=== PATIENT | female | born 1975 | race Caucasian/White ===

== ENCOUNTER 2018-12-16 10:41 | Outpatient (REF) | payer BC, SELFPAY ==
--- NOTE | 2018-12-16 08:30 | PAPFT_PTH ---
PATIENT: Elaina Hutchins LOC: [facility] U#:[id number] AGE/SX: 43/F ROOM: RE12/16/[address]: Akanksha Hinson : 1975 BED: DIS: 12/16/2018 SPEC #: [id number] RECD: 12/16/18 12:44 STATUS: SANJU REBreanna #: [id number] ALISHA: 12/16/18 08:[address]: Akanksha Hinson DEPT: [facility] Cytology RECD BY: Meagan Gunn Tissues: 1 - CX/ENDOCX FOR PAP SMEARS Procedures: PAP THIN PREP/UVM Screening HPV DNA PROBE Comments: [id number]
== END 2018-12-16 11:01 ==
LOC: NCHCN 10:41
PROVIDERS: PCP Family Medicine; Visit Provider Family Medicine
DX: Z00.00 Encounter for general adult medical examination without abnormal findings (principal); Z12.4 Encounter for screening for malignant neoplasm of cervix; Z11.51 Encounter for screening for human papillomavirus (HPV)
CPT/HCPCS: 88142; 87624

== ENCOUNTER 2018-12-23 01:44 | Outpatient (CLI) | payer BC, SELFPAY ==
--- NOTE | 2018-12-23 09:45 | DI.MAMMO_ITS ---
SYMPTOM/DIAGNOSIS: SCREENING, Z12.39, BASELINE MAMMOGRAMS: Mammograms were interpreted according to the usual protocol including computer analysis with CAD system, tomosynthesis and C view imaging. No prior studies for comparison. Breast density, category D. No suspicious masses or microcalcifications are seen. There is no definite evidence of malignancy. IMPRESSION: Negative mammogram. Routine screening is recommended. Category 1. MQSA ASSESSMENT OF FINDINGS: Negative. Category 1. Patient will receive a letter notifying them of these results. BI-RADS category D. The breasts are extremely dense, which lowers the sensitivity of mammography.
== END 2018-12-23 02:04 ==
PROVIDERS: PCP Family Medicine; Visit Provider Family Medicine
DX: Z12.31 Encounter for screening mammogram for malignant neoplasm of breast (principal)
CPT/HCPCS: 77063; 77067

== ENCOUNTER 2019-12-18 08:37 | Outpatient (REF) | payer BC, SELFPAY ==
[2019-12-18 19:01] LABS: Calculated LDL 151 mg/dL (<100); Cholesterol 235 mg/dL (<200); HDL Cholesterol 76 mg/dL (40-60); TSH (W/Ref FT4) 1.22 uIU/mL (0.36-3.74); Triglyceride 44 mg/dL (<150)
== END 2019-12-18 08:57 ==
LOC: NCHCN 08:37
PROVIDERS: PCP Family Medicine; Visit Provider Family Medicine
DX: R63.4 Abnormal weight loss (principal); R25.1 Tremor, unspecified; Z00.00 Encounter for general adult medical examination without abnormal findings
CPT/HCPCS: 80061; 84443

== ENCOUNTER 2020-01-02 13:01 | Outpatient (CLI) | payer BC, SELFPAY ==
[2020-01-07 08:43] LABS: COVID-19 RT-PCR Result Not Detected (NotDetected)
== END 2020-01-02 13:21 ==
PROVIDERS: PCP Family Medicine; Visit Provider Family Medicine
DX: Z20.828 Contact with and (suspected) exposure to other viral communicable diseases (principal); Z11.59 Encounter for screening for other viral diseases; R50.9 Fever, unspecified
CPT/HCPCS: 87449; U0003

== ENCOUNTER 2020-03-16 02:32 | Outpatient (CLI) | payer BC, SELFPAY ==
--- NOTE | 2020-03-16 | DI.MAMMO_ITS ---
EXAM: MAMMO SCREENING CLINICAL HISTORY: SCREENING, Z12.39 TECHNIQUE: Mammograms were interpreted according to the usual protocol including computer analysis w [employer] CAD system, tomosynthesis and C-view imaging. COMPARISON: FINDINGS: The breasts are of a very high density. No dominant mass or clumped microcalcification is identified breast. Current examination is compared with previous examination December 2018 and there has been no gross interval change appearance comparison with the previous study. IMPRESSION: No specific evidence of malignancy at this time. Routine screening examinations are suggested at ye mario intervals due to the family history of breast carcinoma. BI-RADS Cat 1 - Negative: Breast Density - Category D - Extremely dense:
== END 2020-03-16 02:52 ==
PROVIDERS: PCP Family Medicine; Visit Provider Family Medicine
DX: Z12.31 Encounter for screening mammogram for malignant neoplasm of breast (principal); Z80.3 Family history of malignant neoplasm of breast
CPT/HCPCS: 77063; 77067

== ENCOUNTER 2021-03-17 01:25 | Outpatient (CLI) | payer BC, SELFPAY ==
--- NOTE | 2021-03-17 07:40 | DI.MAMMO_ITS ---
Exam(s) MAMMO SCREENING EXAM: MAMMO SCREENING CLINICAL HISTORY: SCREENING, Z12.39 TECHNIQUE: Bilateral full field digital CC and MLO mammographic images were obtained with 3D tomosyn thesis and utilizing computer aided detection (CAD). COMPARISON: Available for comparison. FINDINGS: Masses/Architectural Distortion: There is a new partially obscured nodule in the upper left breast se en on the MLO view. Microcalcifications: No suspicious pleomorphic-type are seen. Skin Thickening/Nipple Retraction: None. IMPRESSION: 1. 4 mm nodule in the upper left breast on the MLO view. 2. Spot compression view and left breast ultrasound are recommended for further evaluation. BI-RADS Category 0 - Assessment Incomplete: Need additional imaging evaluation Breast Density - Category D - Extremely dense Breast density category C or D implies that the patient has dense breast tissue. Dense breast tissue is very common and is not abnormal but dense breast tissue can make it harder to find cancer on a ma mmogram. Also, dense breast tissue may increase their breast cancer risk. This information about the result of the mammogram report was provided to the patient to raise their awareness. Use this report when you speak with the patient about their risks for breast cancer, which includes their family hist ory. At that time, you may recommend for more screening tests (Ultrasound or MRI) as they might be us eful based on their risk. A negative radiographic report should not delay biopsy if a dominant or clinically suspicious mass is present. Up to ten percent of cancers are not identified on mammography. A negative report may reinforce clinical impression. Adenosis and dense breasts may obscure an underlying neoplasm. False positive reports average 6 to 10%. Patient will receive a letter notifying them of these results.
== END 2021-03-17 01:45 ==
PROVIDERS: PCP Family Medicine; Visit Provider Family Medicine
DX: Z12.31 Encounter for screening mammogram for malignant neoplasm of breast (principal); R92.8 Other abnormal and inconclusive findings on diagnostic imaging of breast
CPT/HCPCS: 77063; 77067

== ENCOUNTER 2021-03-30 00:50 | Outpatient (CLI) | payer BC, SELFPAY ==
--- NOTE | 2021-03-30 | DI.US_ITS ---
Exam(s) US BREAST LT COMPLETE EXAM: US BREAST LT COMPLETE CLINICAL HISTORY: F/U MAMMO, LT BREAST NODULE. TECHNIQUE: Complete ultrasound of the left breast was performed incluing all 4 quadrants, the retroa reolar region, and the ipsilateral axilla. COMPARISON: Prior mammograms were reviewed. Today's diagnostic left breast mammogram was also review ed. FINDINGS: LEFT BREAST ULTRASOUND: At the 12 o'clock position there is a 6 x 3 millimeter microcyst. At the 1 o'clock position there is a conglomeration of microcysts measuring 5 x 4 millimeters. This may correspond to what is seen on the mammogram. At the 2 o'clock position there is a 4 x 3 millimeter microcysts. This may also correspond to what w as seen on the mammogram. At the 3 o'clock position there is a conglomeration of microcysts with total measurement of 1.6 x 0.4 cm. This has benign appearance. At the 7 o'clock position there are 2 adjacent microcysts, both measuring approximately 3 millimeters . At the deep 10 o'clock position there is a well-defined slightly lobulated wider than taller nodular density measuring approximately 1.2 x 0.3 cm and exhibiting neutral through transmission. Is difficu lt to determine if this is either island of glandular tissue within dense surrounding tissue or this is a possible fibroadenoma. No other focal findings in all 4 quadrants nor in the immediate retroareolar region. There is no significant adenopathy in the ipsilateral-left axilla. IMPRESSION: There are multiple findings on ultrasound as described individually above which are hidden subjacent to her dense fibroglandular tissue on mammography. Most of the above findings are simple microcysts and conglomeration of microcysts and does at the 1 a nd 2 o'clock positions probably correspond to the finding described on the mammogram. At the 10 o'clock position there is a deep finding as described above measuring 12 x 3 millimeters wh ich is either fibroadenoma or possibly just asymmetric island of glandular tissue. Appropriate follow-up is repeat breast ULTRASOUND in 3 months time. At that time she should undergo bilateral complete breast ultrasound, particularly given the density of her fibroglandular tissue on mammography as well as the numerous findings in the left breast seen on today's ultrasound.. Findings and recommendations were discussed by myself with the patient today. BI-RADS Category 3 - 3 month - Probably Benign Finding: Recommend follow-up ULTRASOUND in 3 months Breast Density - Category D - Extremely dense Breast density Category C or D implies that the patient has dense breast tissue. Dense breast tissue can make it harder to find cancer on a mammogram. Dense breast tissue is also associated with an incr eased risk of breast cancer. This information about the result of the mammogram report was provided to the patient to raise their awareness. Use this report when you speak with the patient about their risks for breast cancer, which includes their family history. At that time, you may recommend additional screening tests (Ultrasoun d or MRI) as these tests may add significant information. A negative radiographic report should not delay biopsy if a dominant or clinically suspicious mass is present. Up to ten percent of cancers are not identified on mammography. A negative report may reinforce clinical impression. Adenosis and dense breasts may obscure an underlying neoplasm. False positive reports average 6 to 10%. Patient will receive a letter notifying them of these results.
--- NOTE | 2021-03-30 | DI.MAMMO_ITS ---
Exam(s) MG MAMMO SCREEN CALL BACK UNI EXAM: MG MAMMO SCREEN CALL BACK UNI-LEFT CLINICAL HISTORY: F/U MAMMO, NODULE UPPER LT BREAST. TECHNIQUE: Unilateral spot mammographic images were obtained with 3D tomosynthesis and utilizing com puter aided detection (CAD). . Left breast Ultrasound was also performed. COMPARISON: Prior mammograms were reviewed. This additional imaging was performed due to findings described on the recent screening mammogram of . FINDINGS: Additional mammographic views performed todayreveal the nodule to persist.Therefore proceeded with [facility] ultrasound Ultrasound performed today reveals numerous findings. Please see that separate report.. Patient yuliya l require follow-up ultrasound in 3 months. IMPRESSION: See ultrasound report Appropriate follow-up is repeat left breast ultrasound in 3 months. Given the density of this patien t's fibroglandular tissue and numerous ultrasound findings in the left breast I recommend that at her follow-up appointment in 3 months that she undergo bilateral breast ultrasound.. The patient was informed of these findings and recommendations prior to leaving the department today. BI-RADS Category 3 - 3 month - Probably Benign Finding: Recommend follow-up mammography in 3 months Breast Density - Category D - Extremely dense Breast density Category C or D implies that the patient has dense breast tissue. Dense breast tissue can make it harder to find cancer on a mammogram. Dense breast tissue is also associated with an incr eased risk of breast cancer. This information about the result of the mammogram report was provided to the patient to raise their awareness. Use this report when you speak with the patient about their risks for breast cancer, which includes their family history. At that time, you may recommend additional screening tests (Ultrasoun d or MRI) as these tests may add significant information. A negative radiographic report should not delay biopsy if a dominant or clinically suspicious mass is present. Up to ten percent of cancers are not identified on mammography. A negative report may reinforce clinical impression. Adenosis and dense breasts may obscure an underlying neoplasm. False positive reports average 6 to 10%. Patient will receive a letter notifying them of these results.
== END 2021-03-30 01:10 ==
PROVIDERS: PCP Family Medicine; Visit Provider Family Medicine
DX: Z12.31 Encounter for screening mammogram for malignant neoplasm of breast (principal); N63.20 Unspecified lump in the left breast, unspecified quadrant; N60.02 Solitary cyst of left breast
CPT/HCPCS: 76642; 77063; 77067

== ENCOUNTER 2021-12-16 18:30 | Outpatient (CLI) | payer OTHER, SELFPAY ==
--- NOTE | 2021-12-16 | DI.RAD_ITS ---
Exam(s) XR SHOULDER LT COMPLETE 2+V EXAM: XR SHOULDER LT COMPLETE 2+V CLINICAL HISTORY: PAIN IN LT SHOULDER, M25.512 TECHNIQUE: COMPARISON: No exams were available for comparison FINDINGS: Four views were obtained. No bony or soft tissue abnormality seen. IMPRESSION: RADIATION DOSE DELIVERED: Total DLP
--- NOTE | 2021-12-16 17:49 | DI.VRAD_ITS ---
PROCEDURE INFORMATION: Exam: XR Left Shoulder Exam date and time: 12/16/2021 4:28 PM Age: 46 years old Clinical indication: Left; Patient HX: L shoulder pain TECHNIQUE: Imaging protocol: XR Left shoulder. Views: 2 or more views. COMPARISON: No relevant images were readily available for comparison purposes. FINDINGS: Bones/joints: No acute fracture or dislocation. Soft tissues: Unremarkable. IMPRESSION: No acute fracture of dislocation. Dictated and Authenticated by: Antony Bernard MD. Ordering:SUNITA Crouch MD
== END 2021-12-16 18:50 ==
LOC: DI 18:34
PROVIDERS: PCP Family Medicine; Visit Provider Physician Assistant Medical
DX: M25.512 Pain in left shoulder (principal)
CPT/HCPCS: 73030

== ENCOUNTER 2022-02-03 10:51 | Outpatient (REF) | payer OTHER, SELFPAY ==
--- NOTE | 2022-02-03 08:15 | PAPFT_PTH ---
PATIENT: Elaina Hutchins LOC: [facility] U#:[id number] AGE/SX: 47/F ROOM: RE02/03/[address]: Akanksha Hinson : 1975 BED: DIS: 02/03/2022 SPEC #: [id number] RECD: 02/03/22 13:25 STATUS: SANJU REBreanna #: [id number] ALISHA: 02/03/22 08:[address]: Akanksha Hinson DEPT: [facility] Cytology RECD BY: Meagan Gunn Tissues: 1 - CX/ENDOCX FOR PAP SMEARS Procedures: PAP THIN PREP/UVM Screening HPV DNA PROBE Comments: [id number]
== END 2022-02-03 10:52 | disposition home or self-care (01) ==
LOC: LBN 10:51
PROVIDERS: PCP Family Medicine; Visit Provider Family Medicine
DX: Z12.4 Encounter for screening for malignant neoplasm of cervix (principal); Z11.51 Encounter for screening for human papillomavirus (HPV); Z87.42 Personal history of other diseases of the female genital tract; Z01.419 Encounter for gynecological examination (general) (routine) without abnormal findings
CPT/HCPCS: 88142; 87624

== ENCOUNTER → 2022-03-20 02:17 | Outpatient (CLI) | payer OTHER, SELFPAY ==
--- NOTE | 2022-03-20 07:45 | DI.MAMMO_ITS ---
Exam(s) MAMMO SCREENING EXAM: MAMMO SCREENING CLINICAL HISTORY: SCREENING, Z12.39. TECHNIQUE: Bilateral full field digital CC and MLO mammographic images were obtained with 3D tomosyn thesis and utilizing computer aided detection (CAD). COMPARISON: 2018 through 2020 FINDINGS: Masses/Architectural Distortion: None seen. Microcalcifications: No suspicious pleomorphic-type are seen. Skin Thickening/Nipple Retraction: None. IMPRESSION: 1. No significant interval change with no specific features of malignancy noted. 2. Unless there is more urgent need, annual screening mammography is recommended, as per [place] [employer] guidelines. BI-RADS Category 1-negative Breast Density - Category D - extremely dense Breast Density Category D: The mammogram demonstrates the patient's breast tissue is dense. Dense zain ast tissue is very common and is not abnormal but dense breast tissue can make it harder to find canc er on a mammogram. Also, dense breast tissue may increase their breast cancer risk. This information about the result of the mammogram report was provided to the patient to raise their awareness. Use th is report when you speak with the patient about their risks for breast cancer, which includes their f amily history. At that time, you may recommend for more screening tests (Ultrasound or MRI) as they m ight be useful based on their risk. A negative radiographic report should not delay biopsy if a dominant or clinically suspicious mass is present. Up to ten percent of cancers are not identified on mammography. A negative report may reinforce clinical impression. Adenosis and dense breasts may obscure an underlying neoplasm. False positive reports average 6 to 10%.
== END ==
PROVIDERS: PCP Family Medicine; Visit Provider Family Medicine
DX: Z12.31 Encounter for screening mammogram for malignant neoplasm of breast (principal)
CPT/HCPCS: 77063; 77067

== ENCOUNTER 2022-08-31 07:04 | Day surgery (SDC) | payer OTHER, SELFPAY ==
--- NOTE | 2022-08-30 16:00 | W.PM.DSUDISC ---
Date of service: 08/31/22 Time of Service: 08:59 Discharge Plan Disposition Patient Disposition: HOME Condition: Good Condition: Good Discharge Details Reason For Visit: Colonoscopy Attending Provider: Kanu Walters Primary Care Provider: Akanksha Hinson Home Meds and New Rx's Prescriptions: Discontinued polyethylene glycol 3350 17 gram/dose powder 238 g PO ONCE Qty: 238 0RF Rx Instructions: take per colonoscopy instructions bisacodyl [Dulcolax (bisacodyl)] 5 mg tablet,delayed release (DR/EC) 5 mg PO ONCE Qty: 4 0RF Rx Instructions: take per colonoscopy instructions Discharge Instructions Additional Instructions: 1. If tolerated, consume a soft, low fiber diet for 1-2 days. 2[address] Do not drive, drink alcohol, operate machinery, make critical decisions, or do activities that require coordination or balance for 24 hours. 3. Because air was put into your colon during the procedure, expelling air from your rectum (passing gas or farting) is normal. 4. You may not have a bowel movement for 1-3 days because of the colonoscopy prep. This is normal. 5. Go directly to the emergency room if you notice any of the following: Develop chills (warm to touch), or if you have a thermometer and your temperature is above 101 Difficulty breathing or difficultly swallowing Persistent vomiting Severe abdominal pain, other than gas cramps Severe chest pain Black, tarry stools Any bleeding ? exceeding one tablespoon 6. Call your physician if the site where your intravenous was started becomes red, swollen, painful, and warm to touch. 7. Your physician has reviewed your pre-procedure medications. Please continue to take those medications as previously ordered. You will be given specific information/education regarding any changes to your medications before leaving. Activity:: Activity as Tolerated Equipment/Supplies:: No Equipment Needed Diet:: As Tolerated DS: Diagnosis Discharge Diagnosis (1) Screening for colon cancer: Status: Acute Asessment and Plan: Negative colonoscopy, follow up in 10 years unless you develop symptoms
--- NOTE | 2022-08-30 16:00 | W.COLOREPORT ---
Date of service: 08/31/22 Time of Service: 09:00 Colonoscopy Report Date of procedure: 08/31/22 Pre-op diagnosis general: Routine health maintenance screening colonoscopy Post-op diagnosis procedure note: same Procedure: Screening colonoscopy Surgeon: Kanu Walters Anesthesia Type: General:No Airway Estimated blood loss (mL): 0 Pathology: none sent Complications: None Disposition: same day Indications: Screening colonoscopy as part of routine health maintenance Prep: Miralax/Dulcolax Procedure Start Time: 08:35 Procedure End Time: 08:49 Retraction Time: 10 Procedure Description: After the induction of monitored anesthetic care, and with the patient in left lateral decubitus position, I began by performing an external anorectal exam.? Perineum and skin were normal, as was the anal verge.? There was no evidence of external hemorrhoids.? Next, I performed a digital rectal exam.? I did not appreciate any abnormal findings.? Next, I advanced a colonoscope into the rectal vault.? I performed retroflexion.? Using insufflation, I then advanced the colonoscope beyond the rectal folds and into the sigmoid colon before advancing towards the cecum.? The quality of the prep was excellent.? The scope was noted to be in the cecum by identification of the ileocecal valve and appendiceal orifice.? I then began withdrawing the colonoscope using repeated irrigation as necessary for full evaluation of the colonic mucosa. ?Once the scope was withdrawn to the level of the rectum, great care was taken to examine portions of the rectal folds.? Finally, the scope was withdrawn and the patient was brought to the same-day surgery recovery unit as the anesthetic wore off. ?The findings and instructions were shared with the patient prior to discharge.
--- NOTE | 2022-08-31 07:19 | W.PREOPHP ---
Assessment and Plan Assessment and plan (1) Screening for colon cancer: Status: Acute Assessment and plan: Screening colonoscopy today History of Present Illness History of Present Illness Chief Complaint: Routine health maintenance screening colonoscopy Narrative: She is 47 years old and she has never had any colon past.? She denies any personal symptoms of colorectal disease like melena or hematochezia.? She has some family history of cancers that include breast and lung, but no colorectal cancers to the best of her knowledge.? She did have some bleeding complications associated with a vaginal delivery of her son in the past.? She did not require any blood transfusion.? She has no other personal history or family history of bleeding disorders.? Her other relevant medical history includes some anxiety that was previously treated with medications.? Subsequently, she has been able to manage those symptoms without pharmacologic intervention. PFSH All Active Problems Ankle sprain (Acute) Ankle fracture (Acute) Screening for colon cancer (Acute) Alopecia (Acute 02/20/18) Medical History Abnormal mammogram Allergic rhinitis Anxiety Family history of breast cancer Family history of lung cancer Family history of malignant neoplasm of ovary in first degree relative H/O abnormal cervical Papanicolaou smear Obstruction of right tear duct surgery under anesthesia to resolve; Yue Bolivar Day Pain in left shoulder Tremor Family History Other Breast cancer Diabetes Social History Smoking/Tobacco Use Status: Never Smoking risk assessment performed?: Yes Alcohol Intake: current Alcohol Intake frequency: a few times a week Drug use: Never Substance use type: does not use Do you feel safe at home: Yes Do you feel safe in your relationship?: Yes Meds Allergies and Home Medications Allergies Allergy/AdvReac Type Severity Reaction Status Date / Time No Known Allergies Allergy Verified 08/31/22 07:16 Exam Const General: cooperative, healthy appearing and comfortable Orientation: awake and oriented x3 Eyes General: appearance normal, both eyes and all related structures Conjunctivae: conjunctivae normal Sclera: sclerae normal Resp Effort & Inspection: normal respiratory effort and able to speak in complete sentences Auscultation: clear to auscultation bilaterally Cardio Jugular venous pressure: no JVD Rate: regular rate Rhythm: regular rhythm Heart Sounds: S1 normal, S2 normal and no murmurs GI Inspection: non-distended Palpation: soft, no guarding, no hernias and nontender Auscultation: normal bowel sounds Skin General skin exam: normal turgor Neuro General: patient alert, patient awake and patient oriented x3 Cognition: normal cognition Extrem Right lower extremity: no edema Left lower extremity: no edema
[2022-08-31 07:20] VITALS: BP 132/53; PULSE 97; RESP 16; TEMP 36.7; O2SAT 100
[2022-08-31] MEDS: Lactated Ringers 1,000 ML 80 ML IV (07:45)
--- NOTE | 2022-08-31 07:51 | W.ANESPRE ---
General Info Date of Service Date Performed: 08/31/22 Height: 5 ft 4 in Weight: 64.18 kg Body Mass Index (BMI): 24.3 Surgical Procedure: Operation Date: 08/31/22 08:20 Proposed Procedure Side Surgeon p Sandra Walters MD Meds Allergies and Home Medications Allergies Allergy/AdvReac Type Severity Reaction Status Date / Time No Known Allergies Allergy Verified 08/31/22 07:16 Current Visit Medications: Current Medications Generic Name Dose Route Start Last Admin Trade Name Freq PRN Reason Stop Dose Admin Hyoscyamine Sulfate 0.125 mg 08/31/22 07:20 Hyoscyamine 0.125 Mg Sl/Oral/Chew SL DIRECTED PRN Ringer's Solution 1,000 mls @ 80 mls/hr 08/31/22 06:00 08/31/22 07:45 IV 09/29/22 23:59 80 mls/hr INFUSION ARVIND Administration IV Miscellaneous Supplies 1 each 08/31/22 06:00 Iv Access IV 09/29/22 23:59 DIRECTED ARVIND Ondansetron HCl 4 mg 08/31/22 07:20 Ondansetron 4 Mg/2 Ml Vial IVP Q4H PRN PRN Nausea / Vomiting Sodium Chloride 0 ml 08/31/22 06:00 Normal Saline Flush 10 Ml Syr IV 09/29/22 23:59 PRN PRN Sodium Chloride 0 ml 08/31/22 06:00 Normal Saline 10 Ml Vial IJ 09/29/22 23:59 DIRECTED PRN Sterile Water 0 ml 08/31/22 06:00 Water,Injection,Sterile 10 Ml Vial IJ 09/29/22 23:59 DIRECTED PRN PFSH Active Problems Active Problems: Problem Status Onset Code Ankle sprain S93.409A Ankle fracture S82.899A Screening for colon cancer Z12.11 Alopecia 02/20/18 L65.9 Medical History Medical History Abnormal mammogram Allergic rhinitis Anxiety Family history of breast cancer Family history of lung cancer Family history of malignant neoplasm of ovary in first degree relative H/O abnormal cervical Papanicolaou smear Obstruction of right tear duct surgery under anesthesia to resolve; Yue Bolivar Day Pain in left shoulder Tremor Medical History Comments:: Reports waking during tear duct surgery but unable to communicate or move; pt reports maternal grandmother had issues waking up Tobacco Smoking/Tobacco Use Status: Never Alcohol Alcohol Intake: current Alcohol intake frequency: a few times a week Substance Use Substance use: Never Substance use type: does not use Vital Signs and Lab Results Vital Signs Most Recent Vital Signs in EMR: Most Recent Vital Signs Temp Pulse Resp BP Pulse Ox 36.7 C 97 H 16 132/53 L 100 08/31/22 07:20 08/31/22 07:20 08/31/22 07:20 08/31/22 07:20 08/31/22 07:20 Lab Results Blood Type / Crossmatch: No Data to Display Complete Blood Count: No Data to Display Complete Metabolic Panel: No Data to Display Liver Function Panel: No Data to Display Coagulation Panel: No Data to Display Cardiac Panel: No Data to Display Arterial Blood Gas: No Data to Display Venous Blood Gas: No Data to Display Pancreas Panel: No Data to Display Thyroid Panel: No Data to Display Infectious Disease: No Data to Display Blood Cultures: No Data to Display Toxicology Panel: No Data to Display Panel: No Data to Display Anesthesia Assessment and Plan Anesthesia History Personal History: No History of Anesthesia Complications and Other Family History: No Family History of Anesthesia Complications and Other Exercise Tolerance Exercise Tolerance: Metabolic Equivalents>4 Pertinent Negatives Pertinent Negatives: No Symptoms of GERD Cardiac & Pulmonary Exam Cardiac Exam: Normal S1/S2 Heart Sounds Pulmonary Exam: Clear Bilateral Breath Sounds Implantable Cardiac Device Does patient have a Pacemaker or an ICD?: No Airway Exam Known Difficult Airway: No Mallampati Class: 2 Mouth Opening: Normal (> 3cm) Thyromental Distance: Greater than 3 cm Neck Range of Motion: Full ROM Neck Circumference: Normal Teeth Condition: Normal Dentition ASA Classification ASA Score: ASA 1 Emergency Case?: No NPO Status NPO Status: NPO Clears >2 hours, Solids >8 hours Status Status: Not Relevant due to Medical History Anesthesia Plan Resuscitation Status: Full Code Anesthesia Technique: General Anesthesia Airway Planned: Natural Airway Monitors Used: Standard Monitors
[2022-08-31 07:53] VITALS: BMI 24.3
[2022-08-31 09:05] VITALS: BP 110/56; PULSE 83; RESP 17; TEMP 37; O2SAT 100
--- NOTE | 2022-08-31 09:14 | W.ANESPOSTOP ---
Postoperative Evaluation Date, Time and Location Date Performed: 08/31/22 Time Performed: 09:14 Patient Location: Day [facility] Unit Vital Signs Most Recent Imported Vital Signs: Most Recent Vital Signs Temp Pulse Resp BP Pulse Ox 37.0 C 83 17 110/56 L 100 08/31/22 09:05 08/31/22 09:05 08/31/22 09:05 08/31/22 09:05 08/31/22 09:05 Pain Score Most Recent Pain Score: Most Recent Pain Score Pain Level 0 08/31/22 09:05 Assessment Mental Status: Awake (Alert & Oriented to Patient Baseline) Airway and Respiratory Function: Patent airway with normal (patient baseline) respiratory exam Cardiovascular Function: Hemodynamically Stable Hydration Status: Adequately Hydrated Nausea & Vomiting: No Nausea or Vomiting Pain: Pt. Denies Any Pain Peripheral Nerve Block: Patient did not receive a nerve block
[2022-08-31 09:34] VITALS: BP 107/59; PULSE 71; RESP 18; TEMP 36.1; O2SAT 100
== END 2022-08-31 09:54 | disposition home or self-care (01) ==
PROVIDERS: PCP Family Medicine; Visit Provider Surgery
PROC: 0DJD8ZZ Inspection of Lower Intestinal Tract, Via Natural or Artificial Opening Endoscopic (ICD-10-PCS; CPT 45378; principal; 2022-08-31 08:15)
DX: Z12.11 Encounter for screening for malignant neoplasm of colon (principal)
CPT/HCPCS: 45378; 81025; J2704

== ENCOUNTER 2023-03-26 02:20 | Outpatient (CLI) | payer OTHER, SELFPAY ==
--- NOTE | 2023-03-26 | DI.MAMMO_ITS ---
Exam(s) MAMMO SCREENING EXAM: MAMMO SCREENING CLINICAL HISTORY: SCREENING, Z12.39. TECHNIQUE: Bilateral full field digital CC and MLO mammographic images were obtained with 3D tomosyn thesis and utilizing computer aided detection (CAD). COMPARISON: Prior mammograms were reviewed. FINDINGS: There has been no significant change in the appearance and distribution of the fibroglandular tissue which is again noted be very dense. There are no CAD designations There are no obvious new spiculated masses nor malignant appearing microcalcification groups. There is no significant architectural distortion nor skin thickening-retraction. IMPRESSION: No radiographic evidence of malignancy. Very dense fibroglandular tissue. BI-RADS Category 1 - Negative Breast Density - Category D - Extremely dense Breast density Category C or D implies that the patient has dense breast tissue. Dense breast tissue can make it harder to find cancer on a mammogram. Dense breast tissue is also associated with an incr eased risk of breast cancer. This information about the result of the mammogram report was provided to the patient to raise their awareness. Use this report when you speak with the patient about their risks for breast cancer, which includes their family history. At that time, you may recommend additional screening tests (Ultrasoun d or MRI) as these tests may add significant information. A negative radiographic report should not delay biopsy if a dominant or clinically suspicious mass is present. Up to ten percent of cancers are not identified on mammography. A negative report may reinforce clinical impression. Adenosis and dense breasts may obscure an underlying neoplasm. False positive reports average 6 to 10%. Patient will receive a letter notifying them of these results.
== END 2023-03-26 02:40 ==
LOC: DI 02:20
PROVIDERS: PCP Family Medicine; Visit Provider Family Medicine
DX: Z12.31 Encounter for screening mammogram for malignant neoplasm of breast (principal)
CPT/HCPCS: 77063; 77067

== ENCOUNTER 2023-12-17 18:16 | Outpatient (REF) | payer OTHER, SELFPAY ==
[2023-12-17 18:59] LABS: HCT 43.2 % (36.0-46.0); HGB 14.6 g/dL (11.2-15.7); MCH 30.9 pg (27.0-33.0); MCHC 33.8 % (32.0-36.0); MCV 92 fL (80-95); Platelet Count 200 10^3/uL (130-400); RBC 4.72 10^6/uL (3.93-5.22); RDW 12.3 % (11.7-14.6); RDW-SD 41.5 fL
[2023-12-17 19:21] LABS: Ferritin 61 ng/mL (8-252); TSH (W/Ref FT4) 2.34 uIU/mL (0.36-3.74)
== END 2023-12-17 18:17 | disposition home or self-care (01) ==
LOC: NCHCN 18:16
PROVIDERS: PCP Family Medicine; Referring Provider Family Medicine; Visit Provider Family Medicine
DX: N93.8 Other specified abnormal uterine and vaginal bleeding (principal); N92.5 Other specified irregular menstruation
CPT/HCPCS: 85027; 82728; 84443

== ENCOUNTER → 2024-04-01 02:12 | Outpatient (CLI) | payer OTHER, SELFPAY ==
--- NOTE | 2024-04-01 | DI.MAMMO_ITS ---
Exam(s) MAMMO SCREENING EXAM: MAMMO SCREENING CLINICAL HISTORY: SCREENING, Z12.31. TECHNIQUE: Bilateral full field digital CC and MLO mammographic images were obtained with 3D tomosyn thesis and utilizing computer aided detection (CAD). COMPARISON: Prior mammograms were reviewed. FINDINGS: The fibroglandular tissue pattern is again noted be very dense, this somewhat decreasing the sensitiv ity of the mammogram for finding hidden underlying lesions. In the right breast there are few new nodular densities. One of these is at approximately 6 o'clock position, measuring 4 x 4 mm and located 5 cm in from the nipple on the CC view. Spot compression vi ew recommended. Other asymmetric density located laterally in the right breast approximately 6 cm in from the nipple on the CC view, this snowman shaped nodule being lobulated and measuring approximately 1.9 by 0.9 cm. On the MLO view this is located 4 cm in from the nipple. In the opposite-left breast there is a superficially located anterior nodule measuring approximately 5 x 4 mm, located 2 cm below the nipple on the MLO view and at the 6 o'clock position on the CC view approximately 1.5 cm in from the nipple. There are no malignant-appearing microcalcification groups in either breast. There is no significant architectural distortion nor skin thickening-retraction. IMPRESSION: Very dense bilateral fibroglandular tissue pattern. Two new right breast asymmetric density-possible nodules, the larger measuring 19 x 9 mm. There is also an asymmetric density-small round nodule ant eriorly in the left breast. Spot compression views of both breasts and bilateral breast ultrasound recommended. BI-RADS Category 0 - Assessment Incomplete: Need additional imaging evaluation Breast Density - Category D - Extremely dense Breast density Category C or D implies that the patient has dense breast tissue. Dense breast tissue can make it harder to find cancer on a mammogram. Dense breast tissue is also associated with an incr eased risk of breast cancer. This information about the result of the mammogram report was provided to the patient to raise their awareness. Use this report when you speak with the patient about their risks for breast cancer, which includes their family history. At that time, you may recommend additional screening tests (Ultrasoun d or MRI) as these tests may add significant information. A negative radiographic report should not delay biopsy if a dominant or clinically suspicious mass is present. Up to ten percent of cancers are not identified on mammography. A negative report may reinforce clinical impression. Adenosis and dense breasts may obscure an underlying neoplasm. False positive reports average 6 to 10%. Patient will receive a letter notifying them of these results.
== END ==
PROVIDERS: PCP Family Medicine; Visit Provider Family Medicine
DX: Z12.31 Encounter for screening mammogram for malignant neoplasm of breast (principal); R92.343 Mammographic extreme density, bilateral breasts; R92.8 Other abnormal and inconclusive findings on diagnostic imaging of breast
CPT/HCPCS: 77063; 77067

== ENCOUNTER → 2024-04-10 00:28 | Outpatient (CLI) | payer OTHER, SELFPAY ==
--- NOTE | 2024-04-10 | DI.MAMMO_ITS ---
Exam(s) US BREAST RT LIMITED US BREAST LT LIMITED MG MAMMO SCREEN CALL BACK BI EXAM: MG MAMMO SCREEN CALL BACK BI and bilateral limited breast ultrasound CLINICAL HISTORY: F/U MAMMO, TWO NEW AREAS ASYMMETRIC DENSITY RT, SMALL ROUND NODULE LT. TECHNIQUE: Craniocaudal and mediolateral oblique Full Field Digital Mammography views of the bilater al breast with Computer Aided Diagnosis followed by Tomosynthesis and bilateral breast ultrasound. COMPARISON: Comparison is made with prior examinations. FINDINGS: Mammography/Tomosynthesis: Masses/Architectural Distortion: In the right breast, the smaller nodule does not persist on the citlali tional views. The larger lobulated density persists in the upper outer quadrant. In the left breast, the subcutaneous nodule persists on the additional views. Microcalcifictions: No suspicious pleomorphic-type are seen. Skin Thickening/Nipple Retraction: None. Limited bilateral breast US: Echotexture: Normal appearance of the glandular tissue. Shadowing: No suspicious foci. Cyst: In the right breast, there is a collection of cysts at the 9 o'clock position 5 cm from the nip ple which would correspond to the mammographic abnormality. They measure in aggregate 5 cm. In the le ft breast there is a 0.3 x 0.2 x 0.3 cm cyst at the 7 o'clock position 3 cm from the nipple. Solid lesions: None seen. Ductal dilation: There is a duct seen at the 6 o'clock position of the left breast. No findings sonog raphically to correspond to the mammographic abnormality. This may represent a lymph node. IMPRESSION: 1. No definite evidence of malignancy is noted. 2. Unless there is more urgent need, follow-up screening mammography is recommended, as per [employer] guidelines. 3. The findings were discussed with the patient on the date of the examination. BI-RADS Category 2 - Benign Findings Breast Density - Category C - Heterogeneously dense Breast density Category C or D implies that the patient has dense breast tissue. Dense breast tissue can make it harder to find cancer on a mammogram. Dense breast tissue is also associated with an incr eased risk of breast cancer. This information about the result of the mammogram report was provided to the patient to raise their awareness. Use this report when you speak with the patient about their risks for breast cancer, which includes their family history. At that time, you may recommend additional screening tests (Ultrasoun d or MRI) as these tests may add significant information. A negative radiographic report should not delay biopsy if a dominant or clinically suspicious mass is present. Up to ten percent of cancers are not identified on mammography. A negative report may reinforce clinical impression. Adenosis and dense breasts may obscure an underlying neoplasm. False positive reports average 6 to 10%. Patient will receive a letter notifying them of these results.
== END ==
PROVIDERS: PCP Family Medicine; Visit Provider Family Medicine
DX: R92.8 Other abnormal and inconclusive findings on diagnostic imaging of breast (principal)
CPT/HCPCS: 76642; 77063; 77067

== ENCOUNTER 2025-02-27 13:19 | Outpatient (REF) | payer OTHER, SELFPAY ==
[2025-02-27 16:06] LABS: Calculated LDL 147 mg/dL (<100); Cholesterol 242 mg/dL (<200); HDL Cholesterol 89 mg/dL (>or=50); Triglyceride 34 mg/dL (<150)
== END 2025-02-27 13:20 | disposition home or self-care (01) ==
LOC: NCHCN 13:19
PROVIDERS: PCP Family Medicine; Visit Provider Family Medicine
DX: Z13.220 Encounter for screening for lipoid disorders (principal)
CPT/HCPCS: 80061

== ENCOUNTER 2025-04-01 13:57 | Outpatient (REF) | payer OTHER, SELFPAY ==
[2025-04-01 16:28] LABS: Hemoglobin A1C 4.8 % (<5.7)
== END 2025-04-01 13:58 | disposition home or self-care (01) ==
LOC: NCHCN 13:57
PROVIDERS: PCP Family Medicine; Visit Provider Family Medicine
DX: Z13.1 Encounter for screening for diabetes mellitus (principal)
CPT/HCPCS: 83036

== ENCOUNTER 2025-04-29 01:46 | Outpatient (CLI) | payer OTHER, SELFPAY ==
--- NOTE | 2025-04-29 | DI.MAMMO_ITS ---
Exam(s) MAMMO SCREENING EXAM: MAMMO SCREENING CLINICAL HISTORY: SCREENING,Z12.31 TECHNIQUE: Bilateral full field digital CC and MLO mammographic images were obtained with 3D tomosynthesis and utilizing computer aided detection (CAD). COMPARISON: Comparison is made with prior examinations. FINDINGS: Masses/Architectural Distortion: No suspicious masses or areas of architectural distortion are present. Microcalcifications: No suspicious pleomorphic-type are seen. Skin Thickening/Nipple Retraction: None. IMPRESSION: 1. No significant interval change with no specific features of malignancy noted. 2. Unless there is more urgent need, screening mammography is recommended, as per [employer] guidelines. BI-RADS Category 1 - Negative Breast Density - Category C - The breast are heterogeneously dense, which may obscure small masses. Breast density Category C or D implies that the patient has dense breast tissue. Dense breast tissue can make it harder to find cancer on a mammogram. Dense breast tissue is also associated with an increased risk of breast cancer. This information about the result of the mammogram report was provided to the patient to raise their awareness. Use this report when you speak with the patient about their risks for breast cancer, which includes their family history. At that time, you may recommend additional screening tests (Ultrasound or MRI) as these tests may add significant information. A negative radiographic report should not delay biopsy if a dominant or clinically suspicious mass is present. Up to ten percent of cancers are not identified on mammography. A negative report may reinforce clinical impression. Adenosis and dense breasts may obscure an underlying neoplasm. False positive reports average 6 to 10%. Patient will receive a letter notifying them of these results.
== END 2025-04-29 02:06 ==
PROVIDERS: PCP Family Medicine; Visit Provider Family Medicine
DX: Z12.31 Encounter for screening mammogram for malignant neoplasm of breast (principal); R92.323 Mammographic fibroglandular density, bilateral breasts
CPT/HCPCS: 77063; 77067

== ENCOUNTER 2025-06-05 11:46 | Outpatient (REF) | payer OTHER, SELFPAY ==
[2025-06-05 16:42] LABS: Vitamin D 25 Total 27 ng/mL (30-100)
== END 2025-06-05 11:47 | disposition home or self-care (01) ==
LOC: NCHCN 11:46
PROVIDERS: PCP Family Medicine; Visit Provider Family Medicine
DX: Z13.21 Encounter for screening for nutritional disorder (principal); R92.333 Mammographic heterogeneous density, bilateral breasts
CPT/HCPCS: 82306